=== PATIENT | female | born 1970 ===

== ENCOUNTER → 2018-01-07 09:00 | Oncology outpatient (ONC) | payer BC, SELFPAY ==
[2018-01-04 13:13] VITALS: BP 120/72; PULSE 85; RESP 16; TEMP 36.8
[2018-01-04] MEDS: METOCLOPRAMIDE 10 MG in SODIUM CHLORIDE 0.9% 50 ML 208 ML IV (13:48)
[2018-01-04] MEDS: MAGNESIUM SULFATE IV (14:26)
[2018-01-04] MEDS: VALPROIC ACID IV (14:26)
[2018-01-04] MEDS: [UNRECOGNIZED DRUG - OTHER] IV (14:26)
[2018-01-04] MEDS: DIHYDROERGOTAMINE IV (14:26)
[2018-01-05] MEDS: METOCLOPRAMIDE 10 MG in SODIUM CHLORIDE 0.9% 50 ML 208 ML IV (09:06)
[2018-01-05] MEDS: VALPROIC ACID IV (10:19)
[2018-01-05] MEDS: DIHYDROERGOTAMINE IV (10:19)
[2018-01-05] MEDS: SODIUM CHLORIDE 0.9% IV (10:19)
[2018-01-07] MEDS: METOCLOPRAMIDE 10 MG in SODIUM CHLORIDE 0.9% 50 ML 208 ML IV (09:16)
[2018-01-07] MEDS: SODIUM CHLORIDE 0.9% IV (10:15)
[2018-01-07] MEDS: VALPROIC ACID IV (10:15)
[2018-01-07] MEDS: DIHYDROERGOTAMINE IV (10:15)
[2018-01-07 10:21] VITALS: BP 108/59; PULSE 81; RESP 18; TEMP 36.7; O2SAT 97
== END ==
PROVIDERS: Visit Provider Specialist
DX: G43.711 Chronic migraine without aura, intractable, with status migrainosus (principal); E86.9 Volume depletion, unspecified; R11.2 Nausea with vomiting, unspecified
CPT/HCPCS: 96365; 96375; J1110; J2765; J3475

== ENCOUNTER → 2018-01-21 09:40 | Outpatient (CLI) | payer BC, SELFPAY ==
[2018-01-21 11:33] LABS: Add Manual Diff / Slide Review NO; Basophils Percent Auto 0.7 % (0-2); Eosinophils Percent Auto 5.2 % (2-4); Hematocrit 43.5 % (36-46); Hemoglobin 14.5 g/dL (12.0-16.0); Lymphocytes Percent Auto 32.5 % (25-40); Mean Corpuscular HGB Conc 33.2 % (30-36); Mean Corpuscular Hemoglobin 31.9 PG (26-34); Monocytes Percent Auto 7.5 % (3-14); Neutrophils Absolute Auto 4300 /uL (3000-5900); Neutrophils Percent Auto 54.1 % (50-75); Platelet Count 277 X10^3/uL (150-400); Red Blood Cell Count 4.54 X10^6/uL (4.0-5.2); Red Cell Distribution Width 13.4 % (11.6-14.8); White Blood Cell Count 7.9 X10^3/uL (4.5-11.0)
[2018-01-21 11:58] LABS: Erythrocyte Sedimentation Rate 13 MM/HR (0-20)
[2018-01-21 12:04] LABS: C-Reactive Protein Quant < 0.5 mg/dL (<1.0)
[2018-01-21 13:29] LABS: Thyroid Stimulating Hormone 0.35 uIU/mL (0.47-4.68)
== END ==
PROVIDERS: Visit Provider Specialist
DX: G44.52 New daily persistent headache (NDPH) (principal); R50.9 Fever, unspecified
CPT/HCPCS: 36415; 84443; 85025; 85651; 86140; 99214